=== PATIENT | female | born 1970 | race Caucasian/White ===

== ENCOUNTER 2017-03-21 07:06 | Observation (INO) | payer BC ==
[2017-03-20 15:41] LABS: BASO % 0.3 %; BASO ABS # 0.02 K/uL (0-0.2); COMPLETE YES; EOS % 1.4 %; HEMATOCRIT 39.4 % (37-47); IG% 0.2 %; LYMPH % 25.6 %; LYMPH ABS # 1.65 K/uL (1.2-3.4); MEAN CELL VOLUME 87.6 fL (80-100); MEAN CORPUSCULAR HEMOGLOBIN 29.8 pg (25-34); MONO % 8.5 %; PLATELET COUNT 212 K/uL (130-400); WHITE BLOOD COUNT 6.45 K/uL (4.8-10.8)
[2017-03-20 16:01] LABS: ALT/SGPT 27 U/L (12-78); BLOOD UREA NITROGEN 13 mg/dl (7-18); BUN/CREATININE RATIO 18.6 (10-20); CALCIUM 8.8 mg/dl (8.5-10.1); CARBON DIOXIDE 26 mmol/L (21-32); CHLORIDE 107 mmol/L (98-107); GLUCOSE 69 mg/dl (70-99); POTASSIUM 3.6 mmol/L (3.5-5.1); SODIUM 141 mmol/L (136-145)
[2017-03-20 16:04] LABS: ALKALINE PHOSPHATASE 56 U/L (45-117); AST/SGOT 18 U/L (15-37)
[2017-03-20 18:13] VITALS: BMI 29.0
[2017-03-21] VITALS (8 sets, daily range): BP systolic 90–111; BP diastolic 56–66; PULSE 61–85; TEMP 36.6–37; O2SAT 94–98; Ht 165.1 cm; Wt 80.7 kg
[~2017-03-21] VITALS: Ht 165.1 cm; Wt 80.7 kg
[~2017-03-21 07:06] MED LIST: LACTATED RINGER'S 1000ML 1,000 ML IV SCH
[2017-03-21] MEDS ORDERED: NEOSTIGMINE METHYLSULFATE 5 MG/5 ML SYR ONE (08:20)
[2017-03-21] MEDS ORDERED: FENTANYL CITRATE INJ 50 MCG/1 ML 2 ML VIAL ONE (08:20)
[2017-03-21] MEDS ORDERED: ONDANSETRON INJ 2 MG/ML 2 ML VIAL ONE (08:20)
[2017-03-21] MEDS ORDERED: MIDAZOLAM HCL 1 MG/ML 2ML VIAL ONE (08:20)
[2017-03-21] MEDS ORDERED: GLYCOPYRROLATE INJ 0.2 MG/ML VIAL ONE ×2 (08:20→08:24)
[2017-03-21] MEDS ORDERED: DEXAMETHASONE SOD INJ 4 MG/ML VIAL ONE (08:20)
[2017-03-21] MEDS ORDERED: LIDOCAINE HCL 2% 2 ML VIAL (20MG/ML) ONE (08:20)
[2017-03-21] MEDS ORDERED: PROPOFOL IV EMULSION 10 MG/ML 20 ML VIAL IV ONE (08:20)
[2017-03-21] MEDS ORDERED: SUCCINYLCHOLINE CHLORIDE 20 MG/ML 10 ML VIAL IV ONE (08:24)
[2017-03-21] MEDS ORDERED: CISATRACURIUM BESYLATE IV SOLN 2 MG/ML 10 ML VIAL ONE (08:24)
--- NOTE | 2017-03-21 09:12 | History & Physical Bridge Note ---
H&P Re-Evaluation Bridge Note: I have examined the patient, reviewed the History & Physical and in the interval since the performance of the History & Physical I have noted the following changes of clinical significance: No changes noted
[2017-03-21] MEDS ORDERED: NALOXONE HCL 0.4 MG/1 ML VIAL/CARP IV PRN (09:15)
[2017-03-21] MEDS ORDERED: EpHEDrine SULFATE INJ 50 MG/ML AMP IV PRN (09:15)
[2017-03-21] MEDS ORDERED: ATROPINE SULFATE 0.1 MG/ML 5ML SYR IV PRN (09:15)
[2017-03-21] MEDS ORDERED: ONDANSETRON INJ 2 MG/ML 2 ML VIAL IV PRN ×2 (09:15→10:30)
[2017-03-21] MEDS ORDERED: PROMETHAZINE HCL INJ 12.5 MG in SODIUM CHLORIDE 0.9% 50ML 50 ML IV PRN (09:15)
[2017-03-21] MEDS ORDERED: LABETALOL HCL IV 5 MG/ML 20ML IV PRN (09:15)
[2017-03-21] MEDS ORDERED: FLUMAZENIL 0.1 MG/1 ML 10 ML VIAL IV PRN (09:15)
[2017-03-21] MEDS ORDERED: BUPIVACAINE 0.5 % 5 MG/1 ML MPF 30ML VIAL ONE (09:17)
[2017-03-21] MEDS ORDERED: CONRAY 60% 50 ML VIAL ONE (09:17)
[2017-03-21] MEDS ORDERED: CEFOXITIN SOD 1 GM VIAL ONE (09:30)
[2017-03-21] MEDS ORDERED: CEFOXITIN IV 2,000 MG in DEXTROSE 5% 50ML 50 ML IV SCH (09:30)
[2017-03-21] MEDS ORDERED: KETOROLAC TROMETHAMINE 30 MG/ML VIAL ONE (10:12)
--- NOTE | 2017-03-21 10:23 | [facility] Post Operative Brief Note ---
Immediate Operative Summary Operative Date Mar 21, 2017. Pre-Operative Diagnosis cholelithiasis Post-Operative Diagnosis cholelithiasis, polyp, adhesions Procedure(s) Performed Laparoscopic Cholecystectomy Surgeon Dr. Leonard Marin [employer] Administrative Assistant Surgeon(s) Jonathan Friedman PA-C and Grazyna Cutler PA-C Estimated Blood Loss 10ML Findings omental adhesions to gb, polyp in tip of gb, 2 cm stone in neck closed fascia at umb w/ 0-vicryl skin- 4-0 monocryl/ dermabond Specimens A. Gallbladder Anesthesia gen Complication(s) None Disposition Recovery Room / PACU
[2017-03-21] MEDS ORDERED: HYDR-5688 PO (10:26)
--- NOTE | 2017-03-21 10:29 | Discharge Instructions ---
Discharge Instructions Date of Service Mar 21, 2017. Admission Reason for Admission: Cholelithiasis; K80.20 Discharge Discharge Diagnosis / Problem: chronic cholecystitis Discharge Goals Goal(s): Decrease discomfort, Improve function, Improve disease control Activity Recommendations Activity Limitations: as noted below Lifting Limitations: no more than 25 pounds Exercise/Sports Limitations: until after follow-up appointment May Resume Sexual Activity: when tolerated Shower/Bathe: tomorrow Driving or Machine Use: resume 3 days after discharge SPECIAL CARE INSTRUCTIONS: * Cover incisions and change daily for comfort/drainage. May leave uncovered with dermabond * May use ibuprofen for pain as tolerated. * Expect some swelling and bruising. Call your doctor if: * Temperature above 101 degrees * Pain not relieved by pain medicine ordered * There is increased drainage or redness from any incision * You have any unanswered questions or concerns [phone]. FOLLOW UP VISIT: If not already scheduled, please call the office for a follow-up visit. for 2 weeks- checkup- no sutures to remove OFFICE PHONE NUMBER: Dr. Marin Office . Current Hospital Diet Patient's current hospital diet: Regular Diet Discharge Diet Recommended Diet: Regular Diet Procedures Procedures Performed: Laparoscopic Cholecystectomy Pending Studies Studies pending at discharge: no Work Instructions Return To Work: after follow-up (may need at least 2 weeks off work) Medical Emergencies . Who to Call and When: Medical Emergencies: If at any time you feel your situation is an emergency, please call 911 immediately. . Non-Emergent Contact Non-Emergency issues call your: Primary Care Provider, Surgeon . "Provider Documentation" section prepared by Leonard Marin. . VTE Core Measure Inpt VTE Proph given/why not?: SCD's
[2017-03-21] MEDS ORDERED: MoRPHine SULFATE 2 MG/ML CARP IV PRN (10:30)
[2017-03-21] MEDS ORDERED: HYDROCODONE/ACETAMOPHEN 5/325MG TAB PO PRN (10:30)
[2017-03-21] MEDS ORDERED: MoRPHine SULFATE 4 MG/ML 1 ML CARP\\VIAL IV PRN (10:30)
[2017-03-21] MEDS ORDERED: PROMETHAZINE HCL INJ 25 MG in SODIUM CHLORIDE 0.9% 50ML 50 ML IV PRN (10:30)
[2017-03-21] MEDS: HYDROmorphone INJ 1 MG/ML SYR IV PRN ×2 (10:41→10:53)
[2017-03-21] MEDS ORDERED: IV FLUIDS COMPLETED PRN (11:00)
[2017-03-21] MEDS ORDERED: ACETAMINOPHEN 1000 MG/100 ML IV IV ONE (11:13)
[2017-03-21] MEDS ORDERED: ACETAMINOPHEN IV 100 ML IV PRN (11:15)
--- NOTE | 2017-03-21 13:03 | Anesthesiology Progress Note ---
Anesthesia Post Op Note Date & Time Mar 21, 2017 at 13:03 Vital Signs Pain Intensity: 0 Vital Signs Past 12 Hours Date Time Temp Pulse Resp B/P (MAP) Pulse Ox O2 Delivery O2 Flow Rate FiO2 03/21/17 12:55 37.0 03/21/17 12:51 92/56 03/21/17 12:49 71 28 97 03/21/17 12:49 71 28 03/21/17 12:46 96/48 03/21/17 12:44 69 17 03/21/17 12:44 72 17 97 03/21/17 12:41 89/58 03/21/17 12:39 66 15 03/21/17 12:39 67 15 97 03/21/17 12:36 91/54 03/21/17 12:34 52 20 03/21/17 12:34 55 20 96 03/21/17 12:31 86/57 03/21/17 12:29 52 12 03/21/17 12:29 51 12 98 03/21/17 12:26 86/50 03/21/17 12:24 53 12 03/21/17 12:24 57 12 98 03/21/17 12:21 92/53 03/21/17 12:20 64 16 92/53 100 Room Air 03/21/17 12:19 53 16 03/21/17 12:19 53 16 97 03/21/17 12:16 84/49 03/21/17 12:14 54 17 03/21/17 12:14 57 17 97 03/21/17 12:11 85/53 03/21/17 12:09 50 15 98 03/21/17 12:09 50 15 03/21/17 12:06 88/59 03/21/17 12:05 57 16 88/59 100 Room Air 03/21/17 12:04 58 13 99 03/21/17 12:04 58 13 03/21/17 12:03 54 13 03/21/17 12:03 54 13 99 03/21/17 12:02 88/53 03/21/17 12:01 85/57 03/21/17 11:58 81 16 03/21/17 11:58 84 16 99 03/21/17 11:56 88/60 03/21/17 11:53 66 14 03/21/17 11:53 64 14 98 03/21/17 11:52 62 16 03/21/17 11:52 62 16 98 03/21/17 11:51 94/49 03/21/17 11:48 86/60 03/21/17 11:47 65 24 03/21/17 11:47 65 24 97 03/21/17 11:46 87/57 03/21/17 11:42 55 12 03/21/17 11:42 53 12 97 03/21/17 11:41 88/55 03/21/17 11:38 53 16 03/21/17 11:38 53 16 97 03/21/17 11:37 85/58 03/21/17 11:37 37.0 03/21/17 11:36 88/52 03/21/17 11:33 52 21 03/21/17 11:33 51 21 99 03/21/17 11:32 53 16 99 03/21/17 11:32 53 16 03/21/17 11:31 89/48 03/21/17 11:27 58 16 03/21/17 11:27 59 16 98 03/21/17 11:26 87/57 03/21/17 11:22 51 14 03/21/17 11:22 51 14 97 03/21/17 11:21 86/58 03/21/17 11:18 54 15 97 03/21/17 11:18 54 15 03/21/17 11:16 85/53 03/21/17 11:13 54 17 03/21/17 11:13 54 17 97 03/21/17 11:11 90/45 03/21/17 11:08 58 18 100 03/21/17 11:08 57 18 03/21/17 11:06 90/54 03/21/17 11:03 56 12 03/21/17 11:03 57 12 100 03/21/17 11:02 89/51 03/21/17 11:01 84/52 03/21/17 10:59 91/47 03/21/17 10:58 53 14 100 03/21/17 10:58 53 14 03/21/17 10:57 51 16 100 03/21/17 10:57 51 16 03/21/17 10:52 58 15 03/21/17 10:52 58 15 100 03/21/17 10:51 93/55 03/21/17 10:47 52 13 100 03/21/17 10:47 53 13 03/21/17 10:46 90/53 03/21/17 10:42 60 17 100 03/21/17 10:42 57 17 03/21/17 10:41 94/58 03/21/17 10:37 62 15 03/21/17 10:37 62 15 100 03/21/17 10:36 98/55 03/21/17 10:33 102/52 03/21/17 10:32 36.8 75 14 102/52 100 Mask 10 03/21/17 10:32 76 03/21/17 10:32 76 100 03/21/17 07:55 36.7 75 20 111/63 (79) 98 Room Air Notes Mental Status: alert / awake / arousable, participated in evaluation Pt Amnestic to Procedure: Yes Nausea / Vomiting: adequately controlled Pain: adequately controlled Airway Patency, RR, SpO2: stable & adequate BP & HR: stable & adequate Hydration State: stable & adequate Anesthetic Complications: no major complications apparent
[2017-03-21] MEDS: LACTATED RINGER'S 1000ML 1,000 ML IV SCH ×2 (13:19→23:57)
[2017-03-21] MEDS ORDERED: NURSING VERBAL MED ORDER ONE (14:45)
[2017-03-21] MEDS: HYDROCODONE/ACETAMOPHEN 5/325MG TAB PO PRN ×2 (15:18→21:17)
[2017-03-21] MEDS: CEFUROXIME IV 1,500 MG in DEXTROSE 5% 100ML 100 ML IV SCH (19:08)
[2017-03-22] MEDS: CEFUROXIME IV 1,500 MG in DEXTROSE 5% 100ML 100 ML IV SCH (01:27)
[2017-03-22 03:30] VITALS: BP 91/60; PULSE 60; TEMP 36.7; O2SAT 96
--- NOTE | 2017-03-22 06:00 | Surgery Progress Note ---
Surgery Progress Note Date of Service Mar 22, 2017. Subjective + feeling well alert , awake- wants to go home Objective Vital Signs: Date Time Temp Pulse Resp B/P (MAP) Pulse Ox O2 Delivery O2 Flow Rate FiO2 03/22/17 03:30 36.7 60 16 91/60 (70) 96 Room Air 03/21/17 23:55 Room Air 03/21/17 22:47 37.0 77 16 91/56 (68) 94 Room Air 03/21/17 19:19 36.6 81 18 99/64 (76) 98 Room Air 03/21/17 16:15 36.7 69 18 95/61 (72) 97 Room Air 03/21/17 16:00 Room Air 03/21/17 15:13 36.9 69 20 100/66 (77) 97 Room Air 03/21/17 14:15 36.8 85 16 92/61 (71) 95 Room Air 03/21/17 13:59 70 16 90/58 (69) 98 Room Air 03/21/17 13:15 98 Room Air 03/21/17 13:15 Room Air 03/21/17 13:15 36.7 61 18 94/61 (72) 98 Room Air 03/21/17 12:55 37.0 03/21/17 12:51 92/56 03/21/17 12:49 71 28 97 03/21/17 12:49 71 28 03/21/17 12:46 96/48 03/21/17 12:44 69 17 03/21/17 12:44 72 17 97 03/21/17 12:41 89/58 03/21/17 12:39 66 15 03/21/17 12:39 67 15 97 03/21/17 12:36 91/54 03/21/17 12:34 52 20 03/21/17 12:34 55 20 96 03/21/17 12:31 86/57 03/21/17 12:29 52 12 03/21/17 12:29 51 12 98 03/21/17 12:26 86/50 03/21/17 12:24 53 12 03/21/17 12:24 57 12 98 03/21/17 12:21 92/53 03/21/17 12:20 64 16 92/53 100 Room Air 03/21/17 12:19 53 16 03/21/17 12:19 53 16 97 03/21/17 12:16 84/49 03/21/17 12:14 54 17 03/21/17 12:14 57 17 97 03/21/17 12:11 85/53 03/21/17 12:09 50 15 98 03/21/17 12:09 50 15 03/21/17 12:06 88/59 03/21/17 12:05 57 16 88/59 100 Room Air 03/21/17 12:04 58 13 99 03/21/17 12:04 58 13 03/21/17 12:03 54 13 03/21/17 12:03 54 13 99 03/21/17 12:02 88/53 03/21/17 12:01 85/57 03/21/17 11:58 81 16 03/21/17 11:58 84 16 99 03/21/17 11:56 88/60 03/21/17 11:53 66 14 03/21/17 11:53 64 14 98 03/21/17 11:52 62 16 03/21/17 11:52 62 16 98 03/21/17 11:51 94/49 03/21/17 11:48 86/60 03/21/17 11:47 65 24 03/21/17 11:47 65 24 97 03/21/17 11:46 87/57 03/21/17 11:42 55 12 03/21/17 11:42 53 12 97 03/21/17 11:41 88/55 03/21/17 11:38 53 16 03/21/17 11:38 53 16 97 03/21/17 11:37 85/58 03/21/17 11:37 37.0 03/21/17 11:36 88/52 03/21/17 11:33 52 21 03/21/17 11:33 51 21 99 03/21/17 11:32 53 16 99 03/21/17 11:32 53 16 03/21/17 11:31 89/48 03/21/17 11:27 58 16 03/21/17 11:27 59 16 98 03/21/17 11:26 87/57 03/21/17 11:22 51 14 03/21/17 11:22 51 14 97 03/21/17 11:21 86/58 03/21/17 11:18 54 15 97 03/21/17 11:18 54 15 03/21/17 11:16 85/53 03/21/17 11:13 54 17 03/21/17 11:13 54 17 97 03/21/17 11:11 90/45 03/21/17 11:08 58 18 100 03/21/17 11:08 57 18 03/21/17 11:06 90/54 03/21/17 11:03 56 12 03/21/17 11:03 57 12 100 03/21/17 11:02 89/51 03/21/17 11:01 84/52 03/21/17 10:59 91/47 03/21/17 10:58 53 14 100 03/21/17 10:58 53 14 03/21/17 10:57 51 16 100 03/21/17 10:57 51 16 03/21/17 10:52 58 15 03/21/17 10:52 58 15 100 03/21/17 10:51 93/55 03/21/17 10:47 52 13 100 03/21/17 10:47 53 13 03/21/17 10:46 90/53 03/21/17 10:42 60 17 100 03/21/17 10:42 57 17 03/21/17 10:41 94/58 03/21/17 10:37 62 15 03/21/17 10:37 62 15 100 03/21/17 10:36 98/55 03/21/17 10:33 102/52 03/21/17 10:32 36.8 75 14 102/52 100 Mask 10 03/21/17 10:32 76 03/21/17 10:32 76 100 03/21/17 07:55 36.7 75 20 111/63 (79) 98 Room Air General Appearance: no apparent distress Respiratory/Chest: no respiratory distress Abdomen: soft Incision(s): intact Laboratory Results: Results Past 24 Hours Test 03/21/17 07:40 03/21/17 07:47 Range/Units Bedside Urine Test NEG NEG Bedside Glucose 90 70-90 mg/dl Assessment & Plan 03/22/17- pod #1 s/p lap willard- doing well d/c home office 2 weeks
[2017-03-22 07:32] VITALS: BP_SYST 88; BP_SYST 99; BP_DIAS 54; BP_DIAS 64; PULSE 61; TEMP 37; O2SAT 96
[2017-03-22] MEDS: HYDROCODONE/ACETAMOPHEN 5/325MG TAB PO PRN (07:58)
[2017-03-22 08:04] VITALS: BP 99/64; PULSE 61; TEMP 37; O2SAT 96
--- NOTE | 2017-03-22 10:35 | Discharge Summary ---
Discharge Summary Date of Service Mar 22, 2017. Admission Date/Reason Mar 21, 2017 at 10:25 Cholelithiasis; K80.20. Discharge Date/Disposition Mar 22, 2017 Home Diagnosis Principal Diagnosis: Cholelithiasis, chronic cholecystitis Procedure(s) Performed Laparoscopic cholecystectomy Medication Reconciliation New Medications: Hydrocodone/Acetaminophen 5MG/325MG ([place] 5MG/325MG) Tab 1-2 TABLET PO q 6 hrs PRN for Pain, #30 TAB PRN PAIN Admission Physical Exam As per Admitting History & Physical. Hospital Course 46 y/o female with symptomatic cholelithiasis/chronic cholecystitis brought in through [facility] for laparoscopic cholecystectomy. The procedure was well tolerated and she was transferred to surgical floor for overnight observation. In the morning she was tolerating regular diet and oral analgesics. Abdomen was soft and Incisions were dry. She was stable for discharge. Discharge Instructions Discharge home. Follow-up Dr. Marin's office in 2 weeks. Please refer to the electronic Patient Visit Report (Discharge Instructions) for additional information.
--- NOTE | 2017-03-23 11:04 | [facility] Operative Report ---
Operative Report Operative Date Mar 23, 2017. Pre-Operative Diagnosis cholelithiasis Post-Operative Diagnosis chronic cholecystitis, adhesions, polyp Procedure(s) Performed lap willard Surgeon Dr. Leonard Marin Compositor Apprentice Surgeon(s) Jonathan Friedman PA-C and Garzyna Cutler PA-C Estimated Blood Loss 10ML Findings omental adhesions to gb, polyp in tip of gb, stone in neck Specimens A. Gallbladder Anesthesia gen Complication(s) None Disposition Recovery Room / PACU Description of Procedure Patient brought in the operating room placed the operative table in the supine position. Her abdomen was prepped and draped in usual fashion pneumatic stockings and orogastric tube were placed. Using half percent plain Marcaine on incision's were anesthetized and incision made just above the umbilicus carried dissection down to the fascia placing a varies needle producing pneumoperitoneum. An 11 mm port was placed this level and under visualization 235 mm ports were placed one cephalad to laterally. Gallbladder was grasped and retracted there were omental adhesions to the gallbladder and these were taken down. Dissection was carried out the kalina hepatis indicating and identifying a stone in the neck of the gallbladder and also a polyp in the tip of the gallbladder. The cystic duct and cystic artery were identified clipped and transected. By was dissected away from the liver bed in usual fashion placed into an Endobag appropriate hemostasis and irrigation the Endobag was removed through the umbilical site. All ports were then removed the fascia at the umbilicus closed using interrupted 0 Vicryl suture. All skin incisions were closed using subcuticular 5-0 Monocryl and Dermabond. Patient was transferred to recovery room in stable condition. I attest to the content of the Intraoperative Record and any orders documented therein. Any exceptions are noted below.
== END 2017-03-22 09:00 | disposition home or self-care (01) ==
LOC: C.ACU 07:06 → C.MSN 10:25 → ENRESERV 11:20
PROVIDERS: ADMIT Surgery; ATTEND Surgery
DX: K80.10 Calculus of gallbladder with chronic cholecystitis without obstruction (principal); K66.0 Peritoneal adhesions (postprocedural) (postinfection); K82.4 Cholesterolosis of gallbladder; Z68.30 Body mass index [BMI] 30.0-30.9, adult; Z98.818 Other dental procedure status; E66.9 Obesity, unspecified